=== PATIENT | male | born 1970 | race Caucasian/White ===

== ENCOUNTER 2020-10-28 11:15 | Inpatient (IN) | payer OTHER ==
[~2020-10-28] VITALS: Ht 188 cm; Wt 64.4 kg
--- NOTE | 2020-10-28 11:50 | NUR ---
The patient is a 50m who complains of pain and swelling to the left leg. he states he has had multiple ultrasounds done on his leg and he was told he did not have a DVT. The left leg is swollen with multiple small spider veins around the ankle and foot. slight redness noted on the upper left thigh. He states he has some weakness in that leg as well. He denies CP at this time but has had episodes of CP and dizziness in the last month. clinical research monitor, spo2, and bp monitors in place. call light within reach. provider at bedside for eval and poc.
[2020-10-28 12:04] LABS: BASOPHILS % (AUTO) 2 % (0-1); EOSINOPHILS % (AUTO) 3 % (1-7); LYMPHOCYTES % (AUTO) 13 % (22-44); MEAN CORPUSCULAR HEMOGLOBIN 30.4 pg (27.5-34.5); MEAN CORPUSCULAR HGB CONC 33.5 g/dL (33.2-36.2); MEAN PLATELET VOLUME 8.7 fL (7.4-10.4); MONOCYTES % (AUTO) 6 % (2-9); NEUTROPHILS % (AUTO) 77 % (42-75); PLATELET COUNT 362 x10^3/uL (130-400); RED CELL DISTRIBUTION WIDTH 14.3 % (9.4-14.8)
[2020-10-28 12:15] LABS: ALBUMIN 2.8 g/dL (3.4-5.0); ANION GAP 5 mmol/L (5-15); CHLORIDE 104 mmol/L (98-107); CREATININE 0.91 mg/dL (0.7-1.3)
[2020-10-28 12:19] LABS: TROPONIN I < 0.015 ng/mL (0.000-0.045)
[2020-10-28 12:33] LABS: MD SCAN
[2020-10-28 12:35] LABS: D-DIMER 3.48 ug/mlFEU (0.00-0.52); INTERNATIONAL NORMALIZED RATIO 1.11 (0.93-1.1); PROTHROMBIN TIME 11.9 Seconds (9.6-11.5)
[2020-10-28] MEDS ORDERED: OMNIPAQUE 350 MG/ML, 75ML BOTTLE ONE (13:25)
--- NOTE | 2020-10-28 13:55 | NUR ---
PT RESTING COMFORTABLY WITH CALL LIGHT WITHIN REACH. U/S AND CT COMPLETED. WARM BLANKET PROVIDED. NO FURTHER NEEDS AT THIS TIME
[2020-10-28] MEDS ORDERED: GABAPENTIN 300 MG CAPSULE PO PRN (14:30)
[2020-10-28] MEDS ORDERED: HYDROcodone/APAP 5/325 TABLET PO PRN (14:30)
[2020-10-28] MEDS ORDERED: morphine SULFATE 10 MG/ML, 1ML IVPush PRN (14:30)
[2020-10-28] MEDS ORDERED: Enoxaparin 1 mg/kg protocol SQ SCH (14:30)
[2020-10-28] MEDS ORDERED: ENOXAPARIN 80 MG/0.8 ML SQ ONE (14:30)
[2020-10-28] MEDS ORDERED: Enoxaparin 1 mg/kg protocol SQ ONE (14:30)
[2020-10-28] MEDS ORDERED: ONDANSETRON ODT 4 MG PO PRN (14:30)
[2020-10-28] MEDS ORDERED: ACETAMINOPHEN 325 MG TABLET PO PRN (14:30)
[2020-10-28] MEDS ORDERED: ONDANSETRON 2MG/ML, 2ML IVPush PRN (14:30)
[2020-10-28] MEDS ORDERED: hydrALAzine 20 MG/ML, 1ML IVPush PRN (14:30)
[2020-10-28] MEDS ORDERED: HEPARIN 25,000 UNITS/250ML PMX 0 ML ONE (14:57)
[2020-10-28] MEDS ORDERED: HEPARIN 5,000 UNITS/ML, 1ML ONE (14:57)
[2020-10-28] MEDS ORDERED: HEPARIN 5,000 UNITS/ML, 1ML IV PRN (15:00)
[2020-10-28] MEDS ORDERED: HEPARIN 25,000 UNITS/250ML PMX 250 ML IV PRN ×2 (15:00)
[2020-10-28] MEDS ORDERED: HEPARIN 5,000 UNITS/ML, 1ML IV ONE (15:00)
--- NOTE | 2020-10-28 15:07 | NUR ---
The admitting provider at the bedside for evaluation. She requested a call to cath lab nurse for an ECOS procedure. Notified ER doc and Monroe ROSENBERG in throughput for the call to the cath lab nurse. Marnie ROSENBERG started a second line 20g in the right forearm.
--- NOTE | 2020-10-28 15:09 | NUR ---
PER ADMITTING HOSPITALIST HOLD HEPARIN UNTIL AFTER APPLICATIONS TRAINER.
--- NOTE | 2020-10-28 15:11 | NUR ---
[employer] RN-[employer] LEAK TESTER TEAM CALLED IN FOR EKOS CATHETER PROCEDURE, AFTER CHECKING WITH SHAKIRA VELASQUEZ.
[2020-10-28] MEDS ORDERED: ALTEPLASE IVPB ONE ×2 (16:00)
[2020-10-28] MEDS ORDERED: NS IVPB ONE ×2 (16:00)
[2020-10-28] MEDS ORDERED: FENTANYL PF 100 MCG/2ML ONE ×2 (16:06→16:42)
[2020-10-28] MEDS ORDERED: MIDAZOLAM 1 MG/ML, 2ML ONE ×2 (16:06→16:42)
--- NOTE | 2020-10-28 16:11 | NUR ---
pt resting comfortably on gurney awaiting the laboratory machinist. vitals updated. he is on his cell phone. all monitors in place. call light within reach. no further need.
[2020-10-28] MEDS ORDERED: Heparin 1000 units/500 ml 500 ML IV SCH (17:30)
[2020-10-28] MEDS ORDERED: SODIUM CHLORIDE FLUSH 3ML SYRINGE IVF PRN (17:30)
[2020-10-28] MEDS ORDERED: SODIUM CHLORIDE 0.9% 1,000 ML IV SCH (17:30)
[2020-10-28] MEDS: MORPHINE SULFATE 4 MG/ML, 1ML IVPush PRN ×2 (19:13→22:10)
[2020-10-28] MEDS: RIVAROXABAN 15 MG TABLET PO SCH (21:29)
[2020-10-28 23:20] LABS: BASOPHILS % (AUTO) 1 % (0-1); EOSINOPHILS % (AUTO) 4 % (1-7); LYMPHOCYTES % (AUTO) 15 % (22-44); MEAN CORPUSCULAR HEMOGLOBIN 30.2 pg (27.5-34.5); MEAN CORPUSCULAR HGB CONC 33.2 g/dL (33.2-36.2); MEAN PLATELET VOLUME 8.7 fL (7.4-10.4); MONOCYTES % (AUTO) 7 % (2-9); NEUTROPHILS % (AUTO) 73 % (42-75); PLATELET COUNT 325 x10^3/uL (130-400); RED BLOOD COUNT 4.11 x10^6/uL (4.38-5.82); RED CELL DISTRIBUTION WIDTH 14.2 % (9.4-14.8)
[2020-10-28 23:23] LABS: MD NO
[2020-10-28 23:52] LABS: FIBRINOGEN 580 mg/dL (200-340)
[2020-10-29 04:24] LABS: BASOPHILS % (AUTO) 1 % (0-1); EOSINOPHILS % (AUTO) 4 % (1-7); LYMPHOCYTES % (AUTO) 17 % (22-44); MEAN CORPUSCULAR HEMOGLOBIN 30.2 pg (27.5-34.5); MEAN PLATELET VOLUME 8.8 fL (7.4-10.4); MONOCYTES % (AUTO) 8 % (2-9); NEUTROPHILS % (AUTO) 69 % (42-75); PLATELET COUNT 321 x10^3/uL (130-400); RED BLOOD COUNT 3.99 x10^6/uL (4.38-5.82); RED CELL DISTRIBUTION WIDTH 13.8 % (9.4-14.8)
[2020-10-29 04:25] LABS: MD NO
[2020-10-29 04:32] LABS: ANION GAP 6 mmol/L (5-15); CALCIUM 8.1 mg/dL (8.5-10.1); CHLORIDE 104 mmol/L (98-107)
[2020-10-29 06:09] LABS: FIBRINOGEN 533 mg/dL (200-340)
[2020-10-29] MEDS: RIVAROXABAN 15 MG TABLET PO SCH ×2 (08:16→20:20)
[2020-10-29 11:35] LABS: BASOPHILS % (AUTO) 1 % (0-1); EOSINOPHILS % (AUTO) 5 % (1-7); LYMPHOCYTES % (AUTO) 17 % (22-44); MEAN CORPUSCULAR HEMOGLOBIN 30.4 pg (27.5-34.5); MEAN CORPUSCULAR HGB CONC 33.5 g/dL (33.2-36.2); MONOCYTES % (AUTO) 8 % (2-9); NEUTROPHILS % (AUTO) 69 % (42-75); PLATELET COUNT 313 x10^3/uL (130-400); RED BLOOD COUNT 3.97 x10^6/uL (4.38-5.82)
[2020-10-29 11:38] LABS: MD NO
[2020-10-29 11:53] LABS: FIBRINOGEN 516 mg/dL (200-340)
[2020-10-29 12:12] VITALS: BP 99/65
[2020-10-29 20:00] VITALS: BP 110/65
[2020-10-30 01:39] VITALS: BP 103/66
[2020-10-30 07:28] VITALS: BP 99/62
[2020-10-30] MEDS: RIVAROXABAN 15 MG TABLET PO SCH (08:19)
[2020-10-30] MEDS ORDERED: RIVA1TAB PO (11:28)
[2020-11-18] MEDS ORDERED: RIVAROXABAN 20 MG TABLET PO SCH (21:00)
== END 2020-10-30 18:01 | disposition home or self-care (01) | DRG 166 ==
LOC: ED 12:04 → SUATTDRO 14:18 → EDIP 14:18 → CCU 17:09 → 5SO 10-29 12:12
PROVIDERS: ADMIT Hospitalist; ATTEND Internal Medicine
PROC: 02FR3Z0 Fragmentation of Left Pulmonary Artery, Percutaneous Approach, Ultrasonic (ICD-10-PCS; principal; 2020-10-28)
PROC: 02FQ3Z0 Fragmentation of Right Pulmonary Artery, Percutaneous Approach, Ultrasonic (ICD-10-PCS; 2020-10-28)
PROC: 3E05317 Introduction of Other Thrombolytic into Peripheral Artery, Percutaneous Approach (ICD-10-PCS; 2020-10-28)
PROC: B54BZZZ Ultrasonography of Right Lower Extremity Veins (ICD-10-PCS; 2020-10-28)
PROC: 4A033B3 Measurement of Arterial Pressure, Pulmonary, Percutaneous Approach (ICD-10-PCS; 2020-10-28)
DX: I26.09 Other pulmonary embolism with acute cor pulmonale (principal); J96.90 Respiratory failure, unspecified, unspecified whether with hypoxia or hypercapnia; I82.422 Acute embolism and thrombosis of left iliac vein; F17.200 Nicotine dependence, unspecified, uncomplicated; M71.22 Synovial cyst of popliteal space [Baker], left knee; I27.20 Pulmonary hypertension, unspecified; Z79.899 Other long term (current) drug therapy; Z82.49 Family history of ischemic heart disease and other diseases of the circulatory system
CPT/HCPCS: 36415; 37211; 71045; 71275; 80048; 82040; 84484; 85025; 85379; 85384; 85520; 85610; 85730; 87081; 93005; 93306; 99156; 99157; 99291; C1769; C1894; G0378; J2250; J3010; Q9967; J2270